=== PATIENT | male | born 1985 | race Caucasian/White ===

== ENCOUNTER 2020-12-14 06:20 | Day surgery (SDC) | payer OTHER ==
[~2020-12-14] VITALS: Ht 185.4 cm; Wt 97.0 kg
[~2020-12-14 06:20] MED LIST: LISINOPRIL10 MG PO
--- NOTE | 2020-12-14 08:07 | NUR ---
12/14/20 0807 Kelly Andrews 0802 PATIENT ARRIVES TO PACU UNRESPONSIVE TO VERBAL STIMULI. RESP EVEN AND UNLABORED, ROOM AIR SATS 93%, PLACE ON NC AT 3 LITERS.
--- NOTE | 2020-12-14 10:25 | OR ---
[facility] [address], [place] [address] Signed DATE OF OPERATION: 12/14/2020 SURGEON: Viraj Melendrez MD PREOPERATIVE DIAGNOSES: 1. Diarrhea. 2. Rectal bleeding. 3. Guaiac-positive stool. 4. Weight loss of 45 pounds over 18 months. 5. Increased lactoferrin (2059). 6. Increase stool calprotectin. POSTOPERATIVE DIAGNOSES: 1. Minimal gastroduodenitis. 2. Moderate pancolitis. PROCEDURE: 1. EGD with CLOtest and biopsies of the duodenum, pyloric bulb and the antrum. 2. Colonoscopy with cold biopsies of the terminal ileum, cecum, right colon, transverse colon, left colon, sigmoid colon, proximal rectum and distal rectum. ESTIMATED BLOOD LOSS: None. INDICATIONS: Prasanna is a 35-year-old gentleman, asked to see me for upper and lower endoscopy. [facility] is [facility] [place]. Over the last 18 months, he has been having diarrhea associated with bloody mucus. He said he has lost 45 pounds. No one else surround him is sick. He had food allergy testing and it was negative. He was guaiac positive at least three times. His lactoferrin and stool calprotectin are both high. Abdominal x-rays were unremarkable. The CT scan of abdomen and pelvis in August 2020 was also unremarkable. Consequently, he was asked to see me with respect to the above. He told no one in the family has inflammatory bowel disease, colon cancer or polyps. I met with Prasanna in the office, I gave him pamphlets on both upper and lower endoscopy. We had discussed the nature of the two tests. He understands there is risk including, but not limited to gas bloating, crampy abdominal pain, bleeding, perforation requiring surgery, and missed diagnosis. He also understands the need for IV conscious sedation. He had expressed understanding and wished to proceed. DESCRIPTION OF PROCEDURE: Electronically Signed By: VIRAJ MELENDREZ MD 12/14/20 1025 PATIENT NAME: PRASANNA COFFMAN OPERATIVE REPORT DATE OF : 85 REPORT #: [id number] PHYSICIAN: VIRAJ MELENDREZ MD PCP: FILIBERTO SAVAGE NP REPORT IS CONFIDENTIAL AND NOT TO BE RELEASED WITHOUT AUTHORIZATION [facility] [address], [place] [address] Signed Prasanna was taken into our endoscopy suite and placed in the supine semi-recumbent position. He was given 8 mg Versed and 150 mcg of fentanyl to cover the upper endoscopy. Even then, he was awake and talking to us and watching the screen. The posterior oropharynx had been anesthetized with Hurricaine spray. We did use a bite block for the upper endoscopy. We had called an anesthesia provider to help us with increased monitoring sedation with propofol for the colonoscopy given the above findings. The adult gastroscope had been introduced and advanced out into the third portion of the duodenum without difficulty. We took a biopsy of the duodenum because the history of diarrhea. He had a little bit of irritation in the pyloric bulb and in the stomach. We took biopsies of the pyloric bulb in the stomach for pathologic review. In addition, biopsy came from the antrum for CLOtest. Upon retroflexion of scope, there was no additional pathology noted. The scope was withdrawn up through the area of the GE junction, which was compliant without stricture. No obvious hiatal hernia or gastric or esophageal varices. His Z-line has very minimal disruption. No Kumar's mucosa, no distal esophagitis. Upper and middle esophagus were unremarkable. After this, the gas was suctioned out and the gastroscope removed. Prasanna tolerated the upper endoscopy quite well, but was quite awake. Prasanna was rotated into the left lateral decubitus position. He was given IV sedation with propofol per our nurse bookkeeping machine mechanic. A digital rectal exam was performed and this was unremarkable. The adult colonoscope was introduced. We could see that he has inflammatory changes starting at the anus and they are contiguous all the way back to the cecum. We turned into the terminal ileum 10-15 cm and it seems to be quite healthy. We took biopsies of the terminal ileum. We then took cold biopsies throughout the entire colon and rectum as described above. He clearly has pancolitis, most likely ulcerative colitis. Upon retroflexion of scope, we can see again that colitis starts at the anus and works its way continuously up the rectum and colon. After this, the gas was suctioned out. The colonoscope removed. Prasanna tolerated the lower endoscopy quite well. RECOMMENDATIONS: I will see Prasanna back in my office in 7 to 14 days to review his results. In the meantime, he will start prednisone 20 mg p.o. daily. Viraj Melendrez MD ALB/MODL /[id number] Electronically Signed By: VIRAJ MELENDREZ MD 12/14/20 1025 PATIENT NAME: PRASANNA COFFMAN OPERATIVE REPORT DATE OF : [birth year] REPORT #: [id number] PHYSICIAN: VIRAJ MELENDREZ MD PCP: FILIBERTO SAVAGE NP REPORT IS CONFIDENTIAL AND NOT TO BE RELEASED WITHOUT AUTHORIZATION [facility] [address] [place] [id number] Signed cc: Viraj Melendrez MD [facility] Copies: VIRAJ MELENDREZ MD ~ Electronically Signed By: VIRAJ MELENDREZ MD 12/14/20 1025 PATIENT NAME: PRASANNA COFFMAN OPERATIVE REPORT DATE OF : [birth year] REPORT #: [id number] PHYSICIAN: VIRAJ MELENDREZ MD PCP: FILIBERTO SAVAGE NP REPORT IS CONFIDENTIAL AND NOT TO BE RELEASED WITHOUT AUTHORIZATION
--- NOTE | 2020-12-21 17:40 | PATH ---
[facility] [address] [facility] [place], [place] [address] Signed SPECIMEN(S): A DUODENUM SPECIMEN(S): B PYLORIC BULB SPECIMEN(S): C ANTRUM SPECIMEN(S): D TERMINAL ILEUM SPECIMEN(S): E CECUM SPECIMEN(S): F ASCENDING SPECIMEN(S): G TRANSVERSE SPECIMEN(S): H DESCENDING SPECIMEN(S): I SIGMOID SPECIMEN(S): J COLON 18 CM SPECIMEN(S): K RECTUM 6 CM SPECIMEN SOURCE: A. DUODENUM B. PYLORIC BULB C. ANTRUM D. TERMINAL ILEUM E. CECUM F. ASCENDING G. TRANSVERSE H. DESCENDING I. SIGMOID J. COLON 18 CM K. RECTUM 6 CM CLINICAL HISTORY: Rectal bleeding; diarrhea; abdominal pain. Diagnosis: Mild gastroenteritis, pancolitis MICROSCOPIC DESCRIPTION: Histologic sections of all submitted blocks are examined by light microscopy. These findings, together with the gross examination, support the pathologic diagnosis. Regarding specimen C: An H. pylori immunohistochemical stain (with appropriately staining controls) is negative for Helicobacter organisms. FINAL PATHOLOGIC DIAGNOSIS: A. Duodenum, biopsy: - Duodenal mucosa with no histopathologic abnormality. - Negative for increased intraepithelial lymphocytes or villous blunting. - Negative for dysplasia or malignancy. B. Stomach, pyloric "bulb", biopsy: PATIENT NAME: PRASANNA COFFMAN PATHOLOGY DATE OF : 85 REPORT #: [id number] PHYSICIAN: HERACLIO PATHOLOGY PCP: FILIBERTO SAVAGE NP REPORT IS CONFIDENTIAL AND NOT TO BE RELEASED WITHOUT AUTHORIZATION [facility] [address] [place], [place] [address] Signed - Duodenal mucosa with no histopathologic abnormality. - Negative for increased intraepithelial lymphocytes or villous blunting. - Negative for dysplasia or malignancy. C. Stomach, antrum, biopsy: - Antral mucosa with chronic, active gastritis. - Negative for Helicobacter organisms (HE and IHC). - Negative for dysplasia or malignancy. D. Terminal ileum, biopsy: - Focal active ileitis. - Negative for granulomas, dysplasia, or malignancy. E. Colon, cecum, biopsy: - Chronic, active colitis. - Negative for dysplasia or malignancy. F. Colon, ascending, biopsy: - Chronic, active colitis. - Negative for dysplasia or malignancy. G. Colon, transverse, biopsy: - Chronic, active colitis. - Negative for dysplasia or malignancy H. Colon, descending, biopsy: - Chronic, active colitis. - Negative for dysplasia or malignancy. I. Colon, sigmoid, biopsy: - Chronic, active colitis. - Negative for dysplasia or malignancy. J. Colon, 18 cm, biopsy: - Chronic, active colitis. - Negative for dysplasia or malignancy. K. Rectum, biopsy: - Chronic, active colitis. - Negative for dysplasia or malignancy. COMMENT: Sections of the colonic and rectal biopsies are similar and demonstrate colonic mucosa with cryptitis, crypt abscesses, crypt architectural distortion, basal cell hyperplasia, and distal Paneth cell metaplasia. A focal poorly formed granuloma associated with an inflamed crypt is seen in the ascending colon biopsy (F). Overall, the findings are compatible with inflammatory bowel disease and ulcerative colitis is favored. However, if this is a first time diagnosis, additional clinical correlation and ruling out infectious etiologies is PATIENT NAME: PRASANNA COFFMAN PATHOLOGY DATE OF : [birth year] REPORT #: [id number] PHYSICIAN: HERACLIO PATHOLOGY PCP: FILIBERTO SAVAGE NP REPORT IS CONFIDENTIAL AND NOT TO BE RELEASED WITHOUT AUTHORIZATION [facility] [address] [place], [place] [address] Signed necessary. As part of [facility]' Quality Improvement Program, this case was reviewed by another member of our pathology staff. NAL:NRT:cml:C2NR GROSS DESCRIPTION: Eleven specimens are received in eleven containers, labeled "EF." A. The specimen, labeled "EF, 1," and designated on the requisition "duodenum biopsy," is received in formalin and consists of one parish soft tissue fragment that measures 0.6 cm in greatest dimension. The specimen is entirely submitted in cassette (A1). B. The specimen, labeled "EF, 2, bulb," and designated on the requisition "pylorus bulb biopsy," is received in formalin and consists of one parish soft tissue fragment that measures 0.4 cm in greatest dimension. The specimen is entirely submitted in cassette (B1). C. The specimen, labeled "EF, 3, antrum," is received in formalin and consists of one parish soft tissue fragment that measures 0.4 cm in greatest dimension. The specimen is entirely submitted in cassette (C1). D. The specimen, labeled "EF, 4," and designated on the requisition "terminal ileum biopsy," is received in formalin and consists of two parish soft tissue fragments that measure 0.4 to 0.5 cm in greatest dimension. The specimen is entirely submitted in cassette (D1). E. The specimen, labeled "EF, 5," and designated on the requisition "cecum biopsy," is received in formalin and consists of one parish soft tissue fragment that measures 0.4 cm in greatest dimension. The specimen is entirely submitted in cassette (E1). F. The specimen, labeled "EF, 6," and designated on the requisition "ascending/right biopsy," is received in formalin and consists of multiple parish soft tissue fragments that measure less than 0.1 to 0.3 cm in greatest dimension. The specimen is entirely submitted in cassette (F1). G. The specimen, labeled "EF, 7," and designated on the requisition "transverse biopsy," is received in formalin and consists of three parish soft tissue fragments that measure 0.2 to 0.4 cm in greatest dimension. The specimen is entirely submitted in cassette (G1). H. The specimen, labeled "EF, 8," and designated on the requisition "descending/left biopsy," is received in formalin and consists of one parish soft tissue fragment that measures 0.4 cm in greatest dimension. The specimen is entirely submitted in cassette (H1). PATIENT NAME: PRASANNA COFFMAN PATHOLOGY DATE OF : 85 REPORT #: [id number] PHYSICIAN: HERACLIO BABCOCK PCP: FILIBERTO SAVAGE NP REPORT IS CONFIDENTIAL AND NOT TO BE RELEASED WITHOUT AUTHORIZATION [address] [address] Signed I. The specimen, labeled "EF, 9," and designated on the requisition "sigmoid biopsy," is received in formalin and consists of one parish soft tissue fragment that measures 0.4 cm in greatest dimension. The specimen is entirely submitted in cassette (I1). J. The specimen, labeled "EF, 10," and designated on the requisition "colon biopsy 18 cm," is received in formalin and consists of two parish soft tissue fragments that measure 0.1 and 0.4 cm in greatest dimension. The specimen is entirely submitted in cassette (J1). K. The specimen, labeled "EF, 11," and designated on the requisition "rectum biopsy 6 cm," is received in formalin and consists of one parish soft tissue fragment that measures 0.4 cm in greatest dimension. The specimen is entirely submitted in cassette (K1). AI(under the direct supervision of a pathologist) The Gross Description was prepared using a voice recognition system. The report was reviewed for accuracy; however, sound-alike word errors, addition and/or deletions may occur. If there is any question about this report, please contact Client Services. ADDITIONAL NOTES: Immunohistochemical and/or in situ hybridization studies were performed on this case with the appropriate positive controls that react as expected. This test was developed and its performance characteristics determined by [facility]. It has not been cleared or approved by the U.S. Food and Drug Administration. The FDA has determined that such clearance or approval is not necessary. This test is used for clinical purposes. It should not be regarded as investigational or for research. [facility] is certified under the Clinical Laboratory Improvement Amendments of 1988 (CLIA) as qualified to perform high complexity clinical laboratory testing. This assay has not been validated for specimens that have been decalcified. PERFORMING LABORATORY: The technical component was performed by [facility], [address] [place] [id number] (Programming Development Project Manager: Machelle Dhillon MD; CLIA# [id number]). Professional interpretation was performed by [facility], [facility], [address] [place] [address] (CLIA# [id number]). Diagnostician: Milena Ugarte MD Pathologist PATIENT NAME: PRASANNA COFFMAN PATHOLOGY DATE OF : 85 REPORT #: [id number] PHYSICIAN: HERACLIO PATHOLOGY PCP: FILIBERTO SAVAGE NP REPORT IS CONFIDENTIAL AND NOT TO BE RELEASED WITHOUT AUTHORIZATION [address] [address] Signed Electronically Signed 12/21/2020 Copies: ~ PATIENT NAME: PRASANNA COFFMAN PATHOLOGY DATE OF : 85 REPORT #: [id number] PHYSICIAN: HERACLIO PATHOLOGY PCP: FILIBERTO SAVAGE NP REPORT IS CONFIDENTIAL AND NOT TO BE RELEASED WITHOUT AUTHORIZATION
== END 2020-12-14 08:30 | disposition home or self-care (01) ==
LOC: OPS 06:20 → DS 06:20 → OPS 06:45 → DS 06:45 → OPS 08:30 → DS 12-21 06:45
PROVIDERS: ATTEND Colon & Rectal Surgery
PROC: 0DBE8ZZ Excision of Large Intestine, Via Natural or Artificial Opening Endoscopic (ICD-10-PCS; 2020-12-14)
PROC: 0DB98ZZ Excision of Duodenum, Via Natural or Artificial Opening Endoscopic (ICD-10-PCS; principal; 2020-12-14 06:45)
PROC: 0DBB8ZZ Excision of Ileum, Via Natural or Artificial Opening Endoscopic (ICD-10-PCS; 2020-12-14 06:45)
DX: K52.9 Noninfective gastroenteritis and colitis, unspecified (principal); K29.51 Unspecified chronic gastritis with bleeding; R63.4 Abnormal weight loss; Z68.28 Body mass index [BMI] 28.0-28.9, adult
CPT/HCPCS: 86677; J2250; J2704; J3010; J7121